=== PATIENT | female | born 1985 | race Caucasian/White ===

== ENCOUNTER 2021-07-12 07:27 | Day surgery (SDC) | payer OTHER ==
[2021-07-07 12:13] LABS: Absolute Lymphocytes (CBC) 2.1 K/uL (0.7-4.9); Hematocrit 43.3 % (36.0-45.0); Lymphocytes % 38.6 % (15.3-44.8); RBC Red Blood Cell Count 5.26 M/uL (3.86-4.86)
[2021-07-07 12:29] LABS: ALT/SGPT 43 U/L (12-78); AST/SGOT 18 U/L (15-37); Albumin 3.9 g/dL (3.4-5.0); Alkaline Phosphatase 110 U/L (45-117); Amylase 31 U/L (25-115); BUN Blood Urea Nitrogen 11 mg/dL (7-18); Bicarbonate 30 mmol/L (21-32); Bilirubin Direct < 0.1 mg/dL (0-0.2); Bilirubin Total 0.3 mg/dL (0.2-1.0); Glucose Level 90 mg/dL (74-106); Lipase 90 U/L (73-393); Potassium 3.9 mmol/L (3.5-5.1); Protein, Total 8.3 g/dL (6.4-8.2); Sodium Level 141 mmol/L (136-145)
[2021-07-12] MEDS ORDERED: Ringers Lactate 1,000 ML IV ONE (07:53)
[2021-07-12] MEDS ORDERED: FENTANYL CITR 100 MCG/2 ML ONE (08:08)
[2021-07-12] MEDS ORDERED: propofoL 200 MG/20 ML VIAL IV ONE (08:08)
[2021-07-12] MEDS ORDERED: ROCURONIUM 50 MG/5 ML VIAL IV ONE (08:08)
[2021-07-12] MEDS ORDERED: dexAMETHasone 10 MG/ML VIAL ONE ×2 (08:09→08:56)
[2021-07-12] MEDS ORDERED: LIDOCAINE 2% MPF 5 ML VIAL ONE (08:09)
[2021-07-12] MEDS ORDERED: KETOROLAC 30 MG/ML INJ ONE (08:09)
[2021-07-12] MEDS ORDERED: MIDAZOLAM HCL 2 MG/2 ML INJ ONE (08:10)
[2021-07-12] MEDS ORDERED: BUPIVACAINE 0.5% PF 10 ML VIAL ONE (08:11)
[2021-07-12] MEDS ORDERED: ONDANSETRON 4 MG/2 ML VIAL ONE ×3 (08:11→11:52)
[2021-07-12] MEDS ORDERED: CIPROFLOXACIN 400mg IV 400 MG/200 ML BAG IV ONE (08:30)
[2021-07-12] MEDS ORDERED: BUPIVACAINE 0.25% PF 10 ML VIAL ONE (08:57)
--- NOTE | 2021-07-12 09:51 | P.BOP ---
Preoperative diagnosis: Acute cholecystitis, Biliary dyskinesia, umbilical hernia, RUQ abd pain Postoperative diagnosis: same Primary procedure: Laparoscopic cholecystectomy Secondary procedure: open repair of umbilical hernia Financial Systems Director: Liseth Ramirez) Estimated blood loss: <10cc Specimen: gb Findings: as above Anesthesia: General Complications: None Transferred to: Recovery Room Condition: Good
[2021-07-12] MEDS ORDERED: GLYCOPYRROLATE 0.2 MG/ML SYR ONE (10:12)
[2021-07-12] MEDS ORDERED: NEOSTIGMINE 1 MG/ML -5 ML ONE (10:20)
--- NOTE | 2021-07-12 10:22 | DS ---
Diagnoses: Umbilical hernia, acute cholecystitis, biliary dyskinesia, right upper quadrant abdominal pain. Procedures: Laparoscopic cholecystectomy, umbilical hernia repair. Disposition: Home. Activity: As tolerated. No heavy lifting. Plan: Follow up in my office in 1 week. Call for appointment at [phone]. Keep area dry for 48 elsy rs, then may shower. Keep Steri-Strip intact. Medications: Include Cipro 500 p.o. q.12 and Tylenol No.3 q.4 hours p.r.n. pain. AVNI/ALEKSANDAR Voice ID: [id number] Report ID: [id number]
--- NOTE | 2021-07-12 10:23 | OP ---
Date of Procedure: 07/12/2021 Surgeon: Kehinde White MD Preoperative Diagnoses: Right upper quadrant abdominal pain, biliary dyskinesia, acute cholecystitis , umbilical hernia. Postoperative Diagnoses: Right upper quadrant abdominal pain, biliary dyskinesia, acute cholecystiti s, umbilical hernia. Procedures: 1.Laparoscopic cholecystectomy. 2.Open repair of umbilical hernia. Anesthesia: General plus local. Complications: None. Finding: Acute cholecystitis as above and umbilical hernia, reducible. Indication: This is the case of a 36-year-old patient, who comes to us with recurrent epigastric rig ht upper quadrant pain, nausea, vomiting, bloating. Since the workup including gastroenterology work up found to have biliary dyskinesia, acute cholecystitis, also umbilical hernia. She wants the gallb ladder out and hernia repaired at the same time. So benefits, alternatives, and risks of laparoscopi c possible open cholecystectomy and umbilical hernia repair fully explained, which include, but not l imited to infection, bleeding, damage to adjacent structures, anesthesia complication, recurrence, HI , and even . She also understands this may not relieve any symptoms. She might need more than 1 surgical intervention. She understood, signed a consent. Mother is with her. Procedure In Detail: The patient was brought to the operating room, placed in supine position. Anes thesia was done without complication. Abdominal area was prepped and draped in usual sterile fashion . Marcaine 0.5% was injected for local anesthetic followed by sharp incision of the skin in the infr aumbilical region. Incision was carried down to fascia, which was opened under direct vision. Perit oneum was encountered, opened under direct vision. Vicryl #1 placed inside the fascia. Delmi troca r was carefully introduced. We noticed the patient to have umbilical hernia present, so before we pu t a Delmi trocar, we extended the incision to include that umbilical hernia is reducible, small. So , we placed Vicryl #1 to also include the umbilical hernia repair. Once we had Delmi trocar in, we proceeded to carefully obtain pneumoperitoneum, placed 3 more trocars under direct visualization in t he right upper quadrant. We put a grasper in the fundus of the gallbladder, another grasper in the i nfundibulum, retracting the gallbladder in the inferolateral fashion, exposing the triangle of Calot and obtaining critical view. Cystic duct and cystic artery were clearly isolated, freed circumferent ially and a connection between those and the gallbladder were clearly identified. I proceeded to lig ate those by using at least 3 clips proximal, 1 clip distal, ligation in middle. Same was done with the cystic artery. No bile leak. No bleeding. The gallbladder was removed from liver using Bovie c auterizer and removed from abdominal cavity using EndoCatch through the umbilical incision. The area was inspected once again. No bile leak. No bleeding. Clips were intact. At that moment, I procee ded to remove the trocars under direct vision and closed the umbilical area and the umbilical hernia with #1 Vicryl. Irrigated subcutaneous tissue, closed that with 3-0 chromic and the skin in a subcut icular fashion with 3-0 chromic and Steri-Strips on top. Sponge count and instrument counts correct. The patient tolerated the procedure well. The patient was sent to recovery in stable condition. AVNI/ALEKSANDAR Voice ID: [id number] Report ID: [id number]
[2021-07-12 11:22] VITALS: O2SAT 99
[2021-07-12] MEDS ORDERED: CODEINE 30MG/APAP 300MG TAB ONE (12:28)
[2021-07-12 14:23] VITALS: BP 116/74; TEMP 96.8
== END 2021-07-12 13:50 | disposition home or self-care (01) ==
LOC: OR 07:27
PROVIDERS: ATTEND Surgery
PROC: 0FT44ZZ Resection of Gallbladder, Percutaneous Endoscopic Approach (ICD-10-PCS; principal; 2021-07-12 09:15)
DX: K81.1 Chronic cholecystitis (principal); K42.9 Umbilical hernia without obstruction or gangrene; R10.11 Right upper quadrant pain; K82.8 Other specified diseases of gallbladder; Z20.822 Contact with and (suspected) exposure to COVID-19
CPT/HCPCS: 85025; 80048; 36415; 82150; 80076; 88304; 83690; 47562; U0002; J2704; J2250; J3010; J1100 ×2; J2710; J7120; J2405 ×3; J0744